=== PATIENT | male | born 1990 | race Caucasian/White ===

== ENCOUNTER 2021-12-01 18:03 | Inpatient (IN) ==
[2021-12-01] MEDS ORDERED: 0.9 % Sodium Chloride 1,000 ML IVC ONE (18:06)
[2021-12-01 18:29] LABS: Basophils # 0.1 K/mcL (0.0-0.2); Basophils % 0.9 %; Eosinophils # 0.2 K/mcL (0.0-0.6); Eosinophils % 1.1 %; Hematocrit 34.1 % (37.5-50.1); Hemoglobin 11.6 g/dL (12.9-16.9); Immature Granulocytes % 1.3 % (0-4); Lymphocytes # 3.5 K/mcL (0.6-4.6); Lymphocytes % 23.3 %; Mean Corpuscular Hemoglobin 34.3 pg (28.0-33.3); Mean Corpuscular Volume 100.9 fL (83.0-100.0); Mean Platelet Volume 9.6 fL (9.4-12.4); Monocytes # 0.9 K/mcL (0.0-1.3); Monocytes % 6.3 %; Platelet Count 159 K/mcL (140-400); Red Blood Count 3.38 M/mcL (4.19-5.50); Red Cell Distribution Width 15.6 % (11.5-14.5); Segmented Neutrophils % 67.1 %
[2021-12-01 18:49] LABS: Alanine Aminotransferase 81 Units/L (7-52); Albumin 4.7 g/dL (3.5-5.7); Albumin/Globulin Ratio 1.4 (1.1-2.2); Alkaline Phosphatase 180 Units/L (34-104); Aspartate Amino Transferase 239 Units/L (13-39); BUN/Creatinine Ratio 9 (6-26); Bilirubin,Total 4.5 mg/dL (0.3-1.0); Blood Urea Nitrogen 10 mg/dL (6-20); Calcium 9.2 mg/dL (8.6-10.3); Carbon Dioxide 15 mEq/L (23-29); Chloride 89 mEq/L (98-107); Globulin 3.3 g/dL (2.4-3.5); Glucose 220 mg/dL (70-105); Magnesium 1.7 mg/dL (1.6-2.6); Osmolality,Calculated 272 (280-300); Phosphorous 3.8 mg/dL (2.7-4.5); Potassium 3.3 mEq/L (3.5-5.1); Sodium 128 mEq/L (136-145); eGFR For African Americans > 60 (> 60); eGFR For Non-African Americans > 60 (> 60)
[2021-12-01 19:05] LABS: Influenza A PCR Negative (Negative); Influenza B PCR Negative (Negative); Resp. Syncytial Virus PCR Negative (Negative); SARS-CoV-2 by PCR (In House) Negative (Negative)
[2021-12-01] MEDS ORDERED: Iopamidol - 370 500 ML MLS IVP ONE (19:09)
[2021-12-01 19:49] LABS: Bacteria,Urine Few per hpf (None-Few); Bilirubin,Urine Negative (Negative); Blood,Urine Moderate (Negative); Clarity,Urine Clear (Clear); Color,Urine Yellow (Yellow); Glucose,Urine (UA) Normal (Normal); Hyaline Casts,Urine Few per lpf (None Seen); Ketones,Urine Negative (Negative); Leukocyte Esterase,Urine Negative (Negative); Mucus,Urine Few per lpf (None-Few); Nitrite,Urine Negative (Negative); PH,Urine 6.5 pH Units (5.0-8.0); Protein,Urine 100 mg/dL (Neg-Trace); RBC,Urine 0-3 per hpf (0-3); Specific Gravity,Urine 1.015 (1.010-1.025); Squamous Epithelial Cell,Urine Few per hpf (None-Few); Urobilinogen,Urine Normal (Normal); WBC,Urine 0-3 per hpf (0-3)
[2021-12-01 19:56] LABS: Amphetamine Screen,Urine Negative ng/mL (Cutoff=1000); Barbiturate Screen,Urine Negative ng/mL (Cutoff=200); Benzodiazepines Screen,Urine Negative ng/mL (Cutoff=200); Cannabinoid Screen,Urine Negative ng/mL (Cutoff = 50); Cocaine Screen,Urine Negative ng/mL (Cutoff= 300); Opiate Screen,Urine Negative ng/mL (Cutoff=300); Phencyclidine Screen,Urine Negative ng/mL (Cutoff=25)
[2021-12-01 20:26] LABS: Hepatitis B Surface Antigen Nonreactive (Nonreactive)
[2021-12-01 20:44] LABS: INR 1.1; Prothrombin Time 12.6 Seconds (9.4-12.1)
[2021-12-01 20:47] LABS: Activated Partial Thrombo Time 31.2 Seconds (26.0-36.0)
[2021-12-01 20:55] LABS: Hepatitis C Virus Antibody Nonreactive (Nonreactive)
[2021-12-01 20:56] LABS: Hepatitis A Antibody IgM Nonreactive (Nonreactive); Hepatitis B Core IgM Nonreactive (Nonreactive)
[2021-12-01] MEDS ORDERED: Naloxone 0.4 MG/ML INJ IVP PRN (21:02)
[2021-12-01] MEDS ORDERED: Melatonin 3 MG TABLET PO PRN (21:02)
[2021-12-01] MEDS ORDERED: *HR* OxyCODONE Immed Rel 5 MG TABLET PO PRN (21:02)
[2021-12-01] MEDS ORDERED: Ondansetron 4 MG/2 ML VIAL IVP PRN (21:02)
[2021-12-01] MEDS ORDERED: *HR* LORazepam 2 MG/ML VIAL IVP PRN ×3 (21:09)
[2021-12-01] MEDS ORDERED: 0.9 % Sodium Chloride 1,000 ML IVC SCH (21:15)
[2021-12-01 21:59] LABS: VBG HCO3 25 mEq/L (21-27); VBG PCO2 40 mmHg (41-51); VBG PO2 58 mmHg (25-50)
[2021-12-01] MEDS: Thiamine (B-1) 100 MG, Folic Acid 1 MG, MVI, adult with vitamin K 10 ML in 0.9 % Sodi... IVPB SCH (22:39)
[2021-12-01] MEDS: 0.9 % Sodium Chloride 1,000 ML IVC SCH (22:39)
[2021-12-02] MEDS: 0.9 % Sodium Chloride 1,000 ML IVC SCH ×4 (02:37→21:36)
[2021-12-02 05:17] LABS: Basophils % 0.5 %; Eosinophils # 0.1 K/mcL (0.0-0.6); Eosinophils % 1.2 %; Hematocrit 29.7 % (37.5-50.1); Immature Granulocytes % 0.5 % (0-4); Lymphocytes # 1.1 K/mcL (0.6-4.6); Lymphocytes % 14.9 %; Mean Corpuscular HGB Conc 33.3 g/dL (31.6-35.5); Mean Corpuscular Hemoglobin 33.9 pg (28.0-33.3); Mean Corpuscular Volume 101.7 fL (83.0-100.0); Mean Platelet Volume 10.2 fL (9.4-12.4); Monocytes # 0.5 K/mcL (0.0-1.3); Monocytes % 6.4 %; Red Blood Count 2.92 M/mcL (4.19-5.50); Red Cell Distribution Width 15.5 % (11.5-14.5); Segmented Neutrophils % 76.5 %; White Blood Count 7.5 K/mcL (4.3-11.1)
[2021-12-02 05:18] LABS: Hemoglobin 9.9 g/dL (12.9-16.9); Neutrophils # 5.7 K/mcL (1.6-8.9); Platelet Count 94 K/mcL (140-400)
[2021-12-02 05:28] LABS: INR 1.1; Prothrombin Time 12.5 Seconds (9.4-12.1)
[2021-12-02 05:29] LABS: Estimated Average Glucose 71 mg/dl; Hemoglobin A1C 4.1 %
[2021-12-02 05:41] LABS: Alanine Aminotransferase 72 Units/L (7-52); Albumin 4.3 g/dL (3.5-5.7); Albumin/Globulin Ratio 1.5 (1.1-2.2); Alkaline Phosphatase 150 Units/L (34-104); Aspartate Amino Transferase 208 Units/L (13-39); BUN/Creatinine Ratio 8 (6-26); Bilirubin,Total 3.6 mg/dL (0.3-1.0); Blood Urea Nitrogen 7 mg/dL (6-20); Calcium 8.7 mg/dL (8.6-10.3); Carbon Dioxide 24 mEq/L (23-29); Chloride 103 mEq/L (98-107); Globulin 2.9 g/dL (2.4-3.5); Glucose 127 mg/dL (70-105); Magnesium 2.1 mg/dL (1.6-2.6); Osmolality,Calculated 282 (280-300); Phosphorous 2.8 mg/dL (2.7-4.5); Potassium 3.6 mEq/L (3.5-5.1); Sodium 136 mEq/L (136-145); Total Protein 7.2 g/dL (6.4-8.9); eGFR For African Americans > 60 (> 60); eGFR For Non-African Americans > 60 (> 60)
[2021-12-02 05:45] LABS: % Iron Saturation 35 % (20-55); Iron 104 mcg/dL (65-175); Transferrin 211 mg/dL (203-362)
[2021-12-02 05:52] LABS: Ferritin > 1500 ng/mL (20-250)
[2021-12-02 06:05] LABS: Folate > 22.3 ng/mL (3.0-16.0); Vitamin B12 382 pg/mL (250-1100)
[2021-12-02] MEDS: *HR* Enoxaparin 40 MG/0.4 ML SYRINGE SQ SCH (06:39)
[2021-12-02] MEDS ORDERED: hydrOXYzine pamoate 25 MG CAPSULE PO PRN (10:11)
[2021-12-02 17:18] LABS: BUN/Creatinine Ratio 8 (6-26); Blood Urea Nitrogen 7 mg/dL (6-20); Calcium 8.9 mg/dL (8.6-10.3); Carbon Dioxide 25 mEq/L (23-29); Chloride 104 mEq/L (98-107); Glucose 119 mg/dL (70-105); Osmolality,Calculated 279 (280-300); Potassium 3.9 mEq/L (3.5-5.1); Sodium 135 mEq/L (136-145); eGFR For African Americans > 60 (> 60); eGFR For Non-African Americans > 60 (> 60)
[2021-12-02] MEDS: Thiamine (B-1) 100 MG, Folic Acid 1 MG, MVI, adult with vitamin K 10 ML in 0.9 % Sodi... IVPB SCH (17:43)
[2021-12-03 02:47] LABS: Alanine Aminotransferase 72 Units/L (7-52); Albumin 4.2 g/dL (3.5-5.7); Albumin/Globulin Ratio 1.4 (1.1-2.2); Alkaline Phosphatase 144 Units/L (34-104); Aspartate Amino Transferase 191 Units/L (13-39); BUN/Creatinine Ratio 10 (6-26); Bilirubin,Total 2.6 mg/dL (0.3-1.0); Blood Urea Nitrogen 9 mg/dL (6-20); Calcium 8.8 mg/dL (8.6-10.3); Carbon Dioxide 23 mEq/L (23-29); Chloride 103 mEq/L (98-107); Glucose 86 mg/dL (70-105); Osmolality,Calculated 278 (280-300); Potassium 3.8 mEq/L (3.5-5.1); Sodium 135 mEq/L (136-145); Total Protein 7.2 g/dL (6.4-8.9); eGFR For African Americans > 60 (> 60); eGFR For Non-African Americans > 60 (> 60)
[2021-12-03] MEDS: 0.9 % Sodium Chloride 1,000 ML IVC SCH (02:58)
[2021-12-03] MEDS: *HR* Enoxaparin 40 MG/0.4 ML SYRINGE SQ SCH (06:41)
[2021-12-03 07:15] VITALS: PULSE 106; TEMP 99; O2SAT 99
[2021-12-03 09:13] VITALS: BP 148/103
== END 2021-12-03 12:43 | disposition home or self-care (01) | DRG 775 ==
LOC: 3NENU 18:03 → EMEROOARM 18:03 → SUATTDRO 21:02 → 3NENU 21:31
PROVIDERS: ADMIT Internal Medicine; ATTEND Internal Medicine